=== PATIENT | male | born 1975 | race Caucasian/White ===

== ENCOUNTER 2020-01-21 19:56 | Inpatient (IN) | payer BC, OTHER ==
--- NOTE | 2020-01-21 20:42 | PDOC ---
History of Present Illness - General Chief Complaint: Bite Stated Complaint: DOG BITE Time Seen by Provider: 01/21/20 20:05 - History of Present Illness Initial Comments: 01/21/20 20:41 44-year-old male with dyslipidemia presents for evaluation after dog bite yesterday. Patient seen by his primary care physician placed on Augmentin cellulitis of the left hand is increasing and going past the outline margin outlined by his physician yesterday. He was given a dose of IV antibiotics by his physician today and told to come to the hospital. He is failing outpatient therapy Past History - Medical History Allergies/Adverse Reactions: Allergies Allergy/AdvReac Type Severity Reaction Status Date / Time No Known Allergies Allergy Verified 01/21/20 20:02 COPD: No - Psycho-Social/Smoking History Smoking History: Never smoked - Substance Abuse Hx (Audit-C & DAST Scrn) How often the patient has a drink containing alcohol: Never Score: In Men: 4 or > Positive; In Women: 3 or > Positive: 0 Screen Result (Pos requires Nsg. Audit-10AR): Negative Review of Systems - Review of Systems Constitutional: No: Fever Integumentary: Yes: Erythema *Physical Exam - Vital Signs Last Vital Signs Temp Pulse Resp BP Pulse Ox 98.5 F 77 19 136/89 98 01/21/20 19:58 01/21/20 19:58 01/21/20 19:58 01/21/20 19:58 01/21/20 19:58 - Physical Exam 01/21/20 20:41 Left hand is warm erythemic and sensitive without induration or areas of fluctuance full passive range of motion of the fingers wrist and forearm. Neurovascular intact ED Treatment Course - LABORATORY CBC & Chemistry Diagram: 01/21/20 21:00 01/21/20 20:44 - RADIOLOGY Radiology Studies Ordered: Category Date Time Status CHEST PA & LAT [RAD] Stat Radiology 01/21/20 20:37 Ordered Medical Decision Making - Medical Decision Making 01/21/20 20:42 Failing outpatient therapy patient put in for admission. I have reviewed the pathophysiology with the patient. They are in agreement with the treatment plan all questions were answered to their satisfaction. Understanding for follow-up without fail was also conveyed to the patient. Again they are in agreement. 01/21/20 20:42 Hospitalist called for admission 01/21/20 21:25 Second call placed to hospitalist for admission Discharge - Discharge Information Problems reviewed: Yes Clinical Impression/Diagnosis: Dog bite, Cellulitis of hand Condition: Stable - Admission Yes - Follow up/Referral Referrals: Jose Brown MD [Primary Care Provider] - - Patient Discharge Instructions - Post Discharge Activity
[2020-01-21 21:35] LABS: BASO % 0.6 % (0-2.0); EOS % 1.5 % (0-4.5); HEMATOCRIT 43.9 % (35.4-49); HEMOGLOBIN 14.8 GM/dL (11.7-16.9); LYMPH % 30.7 % (8-40); MCH 29.1 pg (25.7-33.7); MCHC 33.7 g/dl (32.0-35.9); MEAN CELL VOLUME 86.4 fl (80-96); MEAN PLT VOLUME 8.5 fl (7.5-11.1); MONO % 7.6 % (3.8-10.2); NEUT % 59.6 % (42.8-82.8); PLATELET COUNT 304 K/MM3 (134-434); RBC 5.08 M/mm3 (4.00-5.60); RDW 14.3 % (11.9-15.9); WHITE BLOOD COUNT 9.9 K/mm3 (4.0-10.0)
[2020-01-21 21:43] LABS: INR 1.06 (0.83-1.09); PROTHROMBIN TIME (PATIENT) 12.5 SEC (9.7-13.0)
[2020-01-21 22:20] LABS: ALBUMIN 4.2 g/dl (3.4-5.0); BILIRUBIN,TOTAL 0.4 mg/dL (0.2-1); BLOOD UREA NITROGEN 15.4 mg/dL (7-18); CALCIUM 9.4 mg/dL (8.5-10.1); POTASSIUM 4.2 mmol/L (3.5-5.1); TOT PROT 8.1 g/dl (6.4-8.2)
--- NOTE | 2020-01-21 22:57 | HP ---
Admitting History and Physical - Primary Care Physician PCP: Jose Brown - Admission Chief Complaint: s/p Dog Bite, Increased Pain, Swelling, Redness to L- hand History of Present Illness: This is a 44 y/o male with a PMHx of Hyperlipidemia (Diet and Exercise control), HTN, Anxiety. Who presents to the ED with progressive swelling, erythema, pain and numbness to his left hand s/p dog bite. Patient reports being bite by his dog during the dog being euthanized. He reports seeing his PMD and being started on Augmentin. He reports taking 4 doses without improvement, going to the office and being given IV antibiotics and told to come to the ED for admission. Patient reports that the dog was UTD with Rabies vaccination. Patient denies fever, chills, cough, SOB, CP, palpitations, AP,N/V/D, constipation, dysuria. Patient denies sick contacts or recent travel. Per patient Tetanus Booster was given. History Source: Patient Limitations to Obtaining History: No Limitations - Past Medical History Cardiovascular: Yes: HTN, Hyperlipdemia Psych: Yes: Anxiety - Smoking History Smoking history: Current some day smoker (socially) Have you smoked in the past 12 months: Yes - Alcohol/Substance Use Hx Alcohol Use: Yes (Ocassional) History of Substance Use: reports: None - Social History Usual Living Arrangement: Yes: With Spouse Do you think of yourself as: Straight/Heterosexual ADL: Independent Occupation: Warehouse Receiving Supervisor- [employer] History of Recent Travel: No Home Medications - Allergies Allergies/Adverse Reactions: Allergies Allergy/AdvReac Type Severity Reaction Status Date / Time No Known Allergies Allergy Verified 01/21/20 20:02 - Home Medications Home Medications: Ambulatory Orders Hydrochlorothiazide [Hctz -] 12.5 mg PO DAILY 01/21/20 Paroxetine HCl [Paxil] 10 mg PO DAILY 01/21/20 Phentermine HCl 15 mg PO DAILY 01/21/20 Semaglutide [Ozempic] 1 mg SQ WEEKLY 01/21/20 Family Medical History Family History: Unremarkable Review of Systems - Review of Systems Constitutional: reports: No Symptoms Eyes: reports: No Symptoms HENT: reports: No Symptoms Neck: reports: No Symptoms Cardiovascular: reports: No Symptoms Respiratory: reports: No Symptoms Gastrointestinal: reports: No Symptoms Genitourinary: reports: No Symptoms Breasts: reports: No Symptoms Reported Musculoskeletal: reports: Decreased ROM (left hand), Extremity Pain Integumentary: reports: Erythema, Wound Neurological: reports: Numbness Endocrine: reports: No Symptoms Hematology/Lymphatic: reports: No Symptoms Psychiatric: reports: No Symptoms Pain Intensity: 6 Physical Examination Vital Signs: Vital Signs Temperature 98.5 F 01/21/20 19:58 Pulse Rate 77 01/21/20 19:58 Respiratory Rate 19 01/21/20 19:58 Blood Pressure 136/89 01/21/20 19:58 O2 Sat by Pulse Oximetry (%) 98 01/21/20 19:58 Constitutional: Yes: Well Nourished, No Distress, Calm, Obese Eyes: Yes: WNL, Conjunctiva Clear, EOM Intact, PERRL HENT: Yes: WNL, Atraumatic, Normocephalic Neck: Yes: WNL, Supple, Trachea Midline Cardiovascular: Yes: WNL, Regular Rate and Rhythm, S1, S2 Respiratory: Yes: WNL, Regular, CTA Bilaterally Gastrointestinal: Yes: WNL, Normal Bowel Sounds, Soft, Abdomen, Obese ...Rectal Exam: Yes: Deferred Renal/: Yes: WNL Breast(s): Yes: WNL Musculoskeletal: Yes: Other (Left hand swelling (able to make closed fist, move all digits) Extremities: Yes: Erythema. No: Cold, Cool, Cyanosis, Delayed Capillary Refill Edema: No Peripheral Pulses WNL: Yes Integumentary: Yes: Erythema Wound/Incision: Yes: Reddened. No: Draining Neurological: Yes: WNL, Alert, Oriented, Cran Nerves II-XII Intact ...Motor Strength: LUE (4/5), LLE (5/5), RUE (5/5), RLE (5/5) Psychiatric: Yes: WNL, Alert, Oriented Labs: CBC, BMP 01/21/20 21:00 01/21/20 20:44 Imaging - Results Chest X-ray: Image Reviewed X-ray: Image Reviewed Problem List - Problems (1) Cellulitis of hand Assessment/Plan: s/p Dog Bite Likely secondary to Failed Outpatient Therapy Blood Cultures-pending Hand Xray image reviewed Will start on Clindamycin for broad spectrum coverage Appreciate ID consult Elevate extremity Neurovascular checks Tylenol prn Monitor CBC, CMP Monitor vitals Code(s): L03.119 - CELLULITIS OF UNSPECIFIED PART OF LIMB (2) Dog bite Assessment/Plan: Wound care Continue Clindamycin Appreciate ID consult Monitor CBC Monitor Vitals Code(s): W54.0XXA - BITTEN BY DOG, INITIAL ENCOUNTER (3) Anxiety Assessment/Plan: stable Continue Paxil Code(s): F41.9 - ANXIETY DISORDER, UNSPECIFIED (4) HTN (hypertension) Assessment/Plan: stable Monitor BP Continue HCTZ Monitor CMP Code(s): I10 - ESSENTIAL (PRIMARY) HYPERTENSION (5) HLD (hyperlipidemia) Assessment/Plan: Controlled with diet and exercise No current medication Code(s): E78.5 - HYPERLIPIDEMIA, UNSPECIFIED (6) Severe obesity (BMI >= 40) Assessment/Plan: Counseled on weight reduction and healthier lifestyle choices Continue Phentermine Code(s): E66.01 - MORBID (SEVERE) OBESITY DUE TO EXCESS CALORIES (7) Encounter for screening laboratory testing for COVID-19 virus Assessment/Plan: Low Risk Covid PCR-pending Isolation Precautions Code(s): Z11.59 - ENCOUNTER FOR SCREENING FOR OTHER VIRAL DISEASES Assessment/Plan This is a 44 y/o male with a PMHx of Hyperlipidemia (Diet and Exercise control), HTN, Anxiety. admitted to [facility] for Cellulitis of Left Hand secondary to Failed Outpatient Therapy, s/p Dog Bite for further evaluation of their emergent condition. Plan: See Problem List FEN PO fluids as tolerated Replete lytes prn Low Na, Low Cholesterol Diet DVT ppx OOB SCDs Heparin SQ Dispo: Requires Inpatient Care Visit type - Emergency Visit Emergency Visit: Yes ED Registration Date: 01/21/20 Care time: The patient presented to the Emergency Department on the above date and was hospitalized for further evaluation of their emergent condition. - New Patient This patient is new to me today: Yes Date on this admission: 01/21/20 - Critical Care Critical Care patient: No
[2020-01-22] MEDS ORDERED: ACETAMINOPHEN 325 MG TABLET (FP) ONE (00:29)
[2020-01-22] MEDS: ACETAMINOPHEN 325 MG TABLET (FP) PO PRN ×2 (00:31→15:44)
[2020-01-22] MEDS ORDERED: CLINDAMYCIN 600MG PREMIX IVPB 600 MG/50 ML BAG IVPB ONE (02:48)
[2020-01-22] MEDS: CLINDAMYCIN 600MG PREMIX IVPB 600 MG/50 ML BAG IVPB SCH ×2 (03:10→10:01)
[2020-01-22] MEDS ORDERED: MELATONIN 5 MG TABLETS PO PRN (04:03)
[2020-01-22 05:31] VITALS: BMI 44.9
[2020-01-22 07:40] LABS: BASO % 0.7 % (0-2.0); EOS % 2.1 % (0-4.5); HEMATOCRIT 41.6 % (35.4-49); LYMPH % 34.9 % (8-40); MCH 28.8 pg (25.7-33.7); MCHC 33.6 g/dl (32.0-35.9); MEAN CELL VOLUME 85.8 fl (80-96); MEAN PLT VOLUME 8.1 fl (7.5-11.1); MONO % 7.6 % (3.8-10.2); NEUT % 54.7 % (42.8-82.8); PLATELET COUNT 249 K/MM3 (134-434); RBC 4.85 M/mm3 (4.00-5.60); RDW 14.2 % (11.9-15.9); WHITE BLOOD COUNT 8.2 K/mm3 (4.0-10.0)
[2020-01-22 08:01] LABS: BLOOD UREA NITROGEN 15.8 mg/dL (7-18); CALCIUM 8.8 mg/dL (8.5-10.1); CREATININE 0.9 mg/dL (0.55-1.3); POTASSIUM 3.9 mmol/L (3.5-5.1)
--- NOTE | 2020-01-22 09:40 | PN ---
Progress Note, Physician Chief Complaint: Left hand cellulitis s/p dog bite History of Present Illness: NAD Swelling left hand much improved, mild pain if he tries to close his hand - Current Medication List Current Medications: Active Medications Acetaminophen (Tylenol -) 650 mg PO Q6H PRN PRN Reason: PAIN LEVEL 6-10 Last Admin: 01/22/20 00:31 Dose: 650 mg Documented by: Heparin Sodium (Porcine) (Heparin -) 5,000 unit SQ BID [facility] Hydrochlorothiazide (Hctz -) 12.5 mg PO DAILY [facility] Clindamycin Phosphate (Cleocin 600 Mg Premix Ivpb -) 600 mg in 50 mls @ 100 mls/hr IVPB Q6H-IV [facility]; Protocol Last Admin: 01/22/20 03:10 Dose: 100 mls/hr Documented by: Lactobacillus Acidophilus (Bacid -) 1 tab PO DAILY [facility] Melatonin (Melatonin) 5 mg PO HS PRN PRN Reason: INSOMNIA Last Admin: 01/22/20 04:15 Dose: 5 mg Documented by: Non-Formulary Medication (Phentermine Hcl [Phentermine Hcl]) 15 mg PO DAILY [facility] Paroxetine HCl (Paxil -) 10 mg PO DAILY [facility] - Objective Vital Signs: Vital Signs Temperature 97.9 F 01/22/20 05:26 Pulse Rate 60 01/22/20 05:26 Respiratory Rate 18 01/22/20 05:26 Blood Pressure 140/58 L 01/22/20 05:26 O2 Sat by Pulse Oximetry (%) 96 01/22/20 05:26 Constitutional: Yes: Well Nourished, No Distress, Calm Cardiovascular: Yes: Regular Rate and Rhythm Respiratory: Yes: Regular, CTA Bilaterally Gastrointestinal: Yes: Normal Bowel Sounds, Soft Genitourinary: Yes: WNL Musculoskeletal: Yes: WNL Extremities: Yes: Other (Left hand swelling) Edema: No Peripheral Pulses WNL: Yes Integumentary: Yes: Erythema (Left dorsal hand) Neurological: Yes: Alert, Oriented Psychiatric: Yes: Alert, Oriented Labs: CBC, BMP 01/22/20 06:40 01/22/20 06:40 INR, PTT INR 1.06 (0.83-1.09) 01/21/20 21:00 Problem List - Problems (1) Cellulitis of hand Assessment/Plan: -Labs unremarkable -ESR mildly elevated -ID consult -Afebrile -IV abx as per ID, may change to oral in am and d/c home Problems reviewed: Yes Code(s): L03.119 - CELLULITIS OF UNSPECIFIED PART OF LIMB (2) Dog bite Problems reviewed: Yes Code(s): W54.0XXA - BITTEN BY DOG, INITIAL ENCOUNTER (3) Severe obesity (BMI >= 40) Problems reviewed: Yes Code(s): E66.01 - MORBID (SEVERE) OBESITY DUE TO EXCESS CALORIES Assessment/Plan See problem list
[2020-01-22] MEDS ORDERED: PHENTERMINE HCL 15 MG PO SCH (10:00)
[2020-01-22] MEDS: LACTOBACILLUS ACIDOPHILUS 1 TABLET PO SCH (10:01)
[2020-01-22] MEDS: HEPARIN NA (PORCINE) 5,000 UNITS/ML 1ML VIAL SQ SCH ×2 (10:01→21:33)
[2020-01-22] MEDS: HYDROCHLOROTHIAZIDE 12.5 MG CAPSULE (FP) PO SCH (10:01)
[2020-01-22] MEDS: PARoxetine HCL 10 MG TABLET PO SCH (10:01)
--- NOTE | 2020-01-22 11:48 | PN ---
Progress Note (short form) - Note Progress Note: ID CONSULT DICTATED CELLULITIS L HAND S/P DOG BITE L HAND AWAIT C/S EMPPIRIC UNASYN/ VANCOMYCIN ELEVATION
--- NOTE | 2020-01-22 12:30 | CONS ---
INFECTIOUS DISEASE CONSULTATION DATE OF CONSULTATION: DATE OF DICTATION: 01/22/2020 HISTORY: The patient is a 44-year-old male who is evaluated for cellulitis of the left hand. He reports that on Monday, January 20, 2020, he was at the billing typist for his dog's euthanasia. He was bitten by the dog on his left hand. He sustained a bite wound to the webspace of the thumb and the 1st finger as well as the distal aspect of the thumb and the radial aspect of the thumb. The patient promptly washed the wound and used iodine. He presented to his primary care physician where he was prescribed Augmentin. The area of erythema was traced out. He reports that despite the Augmentin he developed worsening, swelling of the hand as well as extension of erythema from the dorsum of the hand to the wrist area. Patient complains of pain in the left hand. He denies any purulent wound drainage. No fever or chills. He is nondiabetic. PAST MEDICAL HISTORY: Positive for obesity, hypertension, hyperlipidemia, anxiety. ALLERGIES: No known allergies. MEDICATIONS: Include clindamycin, Paxil, Tylenol, hydrochlorothiazide. SOCIAL HISTORY: He lives in the community. 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 He is a smoker, occasional EtOH. SYSTEMS REVIEW: Neurologic: No loss of consciousness, seizure activity, focal weakness. Cardiac: Negative chest pain or palpitations. Respiratory: Negative cough or sputum production. Gastrointestinal: Negative vomiting or diarrhea. Genitourinary: Negative for urinary tract infection. LABORATORY DATA: White count 8.2, hematocrit 41.6, platelet count 249. BUN 15, creatinine 0.9, ESR 18, C-reactive protein 1.9. Blood cultures pending. PHYSICAL EXAMINATION: General: He is awake and alert. He is not acutely toxic appearing. Vital Signs: Temperature 97.9, blood pressure 140/58, pulse 60 regular, respirations 18 per minute. HEENT: Sclerae are anicteric. Heart: Sounds S1, S2. Lungs: Clear. Abdomen: Soft, nontender. Extremities: Negative for edema. Examination of the left hand there are bite wounds present on the dorsal aspect of the webspace between the left thumb and the left index finger. There are also bite wounds present distal tip of the thumb as well as the radial aspect of the mid thumb. No purulent drainage. There is swelling and erythema of the left thumb extending to the dorsum of the hand and to the proximal wrist. It is tender to touch. There is no crepitus or fluctuance, no lymphangitic streaking. IMPRESSION: 1. Cellulitis, left hand. 2. Status post dog bite, left hand. Await cultures. Empiric antibiotic coverage with Unasyn and vancomycin. Elevation, local wound care. Thank you for the kind referral. ARACELI BEAR M.D. MARLYN/[id number]
[2020-01-22] MEDS ORDERED: PT OWN MED DRAWER 7, Y5N ONE ×2 (14:41→20:38)
[2020-01-22] MEDS: AMPICILLIN NA/SULBACTAM NA 3 GM in SODIUM CHLORIDE 100 ML IVPB SCH ×3 (14:44→20:45)
--- NOTE | 2020-01-22 14:55 | EKG ---
Test Reason : Blood Pressure : / mmHG Vent. Rate : 063 BPM Atrial Rate : 063 BPM P-R Int : 116 ms QRS Dur : 094 ms QT Int : 420 ms P-R-T Axes : 017 -11 007 degrees QTc Int : 429 ms NORMAL SINUS RHYTHM VOLTAGE CRITERIA FOR LEFT VENTRICULAR HYPERTROPHY ABNORMAL ECG NO PREVIOUS ECGS AVAILABLE Confirmed by TERENCE DE MD ([id number]) on 01/22/2020 2:55:06 PM Referred By: Confirmed By:TERENCE DE MD
[2020-01-22] MEDS: VANCOMYCIN 1 GRAM (PRE-DOCKED) 1,000 MG/250 ML BAG IVPB SCH (17:10)
[2020-01-23] MEDS: VANCOMYCIN 1 GRAM (PRE-DOCKED) 1,000 MG/250 ML BAG IVPB SCH ×2 (00:12→11:36)
[2020-01-23] MEDS ORDERED: PT OWN MED DRAWER 7, Y5N ONE (02:11)
[2020-01-23] MEDS: AMPICILLIN NA/SULBACTAM NA 3 GM in SODIUM CHLORIDE 100 ML IVPB SCH ×3 (02:15→14:00)
[2020-01-23] MEDS: HYDROCHLOROTHIAZIDE 12.5 MG CAPSULE (FP) PO SCH (09:57)
[2020-01-23] MEDS: HEPARIN NA (PORCINE) 5,000 UNITS/ML 1ML VIAL SQ SCH (09:57)
[2020-01-23] MEDS: LACTOBACILLUS ACIDOPHILUS 1 TABLET PO SCH (09:57)
[2020-01-23] MEDS: PARoxetine HCL 10 MG TABLET PO SCH (09:58)
[2020-01-23 10:06] VITALS: BP 111/58; PULSE 61; TEMP 98.1
--- NOTE | 2020-01-23 13:12 | DS ---
Physical Examination Vital Signs: Vital Signs Temperature 98.1 F 01/23/20 10:00 Pulse Rate 61 01/23/20 10:00 Respiratory Rate 189 H 01/23/20 10:00 Blood Pressure 111/58 L 01/23/20 10:00 O2 Sat by Pulse Oximetry (%) 100 01/23/20 10:00 Cardiovascular: Yes: Regular Rate and Rhythm Respiratory: Yes: Regular, CTA Bilaterally Gastrointestinal: Yes: Normal Bowel Sounds, Soft Wound/Incision: No: Draining, Reddened, Bleeding Labs: CBC, BMP 01/22/20 06:40 01/22/20 06:40 Discharge Summary Problems reviewed: Yes Reason For Visit: DOG BITE Current Active Problems Anxiety (Acute) Cellulitis of hand (Acute) Dog bite (Acute) Encounter for screening laboratory testing for COVID-19 virus (Acute) HLD (hyperlipidemia) (Acute) HTN (hypertension) (Acute) Severe obesity (BMI >= 40) (Acute) Hospital Course: Problems (1) Cellulitis of hand Assessment/Plan: -Labs unremarkable -ESR mildly elevated -ID consult -Afebrile -IV abx as per ID, may change to oral in am and d/c home Problems reviewed: Yes Code(s): L03.119 - CELLULITIS OF UNSPECIFIED PART OF LIMB (2) Dog bite Problems reviewed: Yes Code(s): W54.0XXA - BITTEN BY DOG, INITIAL ENCOUNTER (3) Severe obesity (BMI >= 40) Problems reviewed: Yes Code(s): E66.01 - MORBID (SEVERE) OBESITY DUE TO EXCESS CALORIES Condition: Stable - Instructions Referrals: Jose Brown MD [Primary Care Provider] - - Home Medications Comprehensive Discharge Medication List: Ambulatory Orders Hydrochlorothiazide [Hctz -] 12.5 mg PO DAILY 01/21/20 Paroxetine HCl [Paxil] 10 mg PO DAILY 01/21/20 Phentermine HCl 15 mg PO DAILY 01/21/20 Semaglutide [Ozempic] 1 mg SQ WEEKLY 01/21/20 Acetaminophen [Tylenol .Regular Strength -] 650 mg PO Q6H PRN tablet 01/23/20 Amox-Tr/K Cl [Augmentin - 875Mg Tablet] 1 tab PO BID #14 tablet 01/23/20
--- NOTE | 2020-01-23 13:29 | PN ---
Progress Note, Physician History of Present Illness: AWAKE, ALERT SEATED IN BED AFEBRILE REPORTS LESS L HAND PAIN NO C/O F/C BC (-) COVID (-) - Current Medication List Current Medications: Active Medications Acetaminophen (Tylenol -) 650 mg PO Q6H PRN PRN Reason: PAIN LEVEL 6-10 Last Admin: 01/22/20 15:44 Dose: 650 mg Documented by: Heparin Sodium (Porcine) (Heparin -) 5,000 unit SQ BID [facility] Last Admin: 01/23/20 09:57 Dose: 5,000 unit Documented by: Hydrochlorothiazide (Hctz -) 12.5 mg PO DAILY [facility] Last Admin: 01/23/20 09:57 Dose: 12.5 mg Documented by: Ampicillin Sodium/Sulbactam (Sodium 3 gm/ Sodium Chloride) 100 mls @ 200 mls/hr IVPB Q6H-IV [facility] Last Admin: 01/23/20 09:57 Dose: 200 mls/hr Documented by: Vancomycin HCl (Vancomycin (Pre-Docked)) 1,000 mg in 250 mls @ 166.667 mls/hr IVPB Q12H [facility]; Protocol Last Admin: 01/23/20 11:36 Dose: 166.667 mls/hr Documented by: Lactobacillus Acidophilus (Bacid -) 1 tab PO DAILY [facility] Last Admin: 01/23/20 09:57 Dose: 1 tab Documented by: Melatonin (Melatonin) 5 mg PO HS PRN PRN Reason: INSOMNIA Last Admin: 01/22/20 04:15 Dose: 5 mg Documented by: Paroxetine HCl (Paxil -) 10 mg PO DAILY [facility] Last Admin: 01/23/20 09:58 Dose: 10 mg Documented by: - Objective Vital Signs: Vital Signs Temperature 98.1 F 01/23/20 10:00 Pulse Rate 61 01/23/20 10:00 Respiratory Rate 189 H 01/23/20 10:00 Blood Pressure 111/58 L 01/23/20 10:00 O2 Sat by Pulse Oximetry (%) 100 01/23/20 10:00 Cardiovascular: Yes: Regular Rate and Rhythm, S1, S2 Respiratory: Yes: CTA Bilaterally Gastrointestinal: Yes: Normal Bowel Sounds, Soft. No: Tenderness Extremities: Yes: Other (DECREASED L HAND SWELLING; ERYTHEMA RESOLVED; NO WOUND DRAINAGE) Labs: CBC, BMP 01/22/20 06:40 01/22/20 06:40 INR, PTT INR 1.06 (0.83-1.09) 01/21/20 21:00 Assessment/Plan CELLULITIS L HAND - IMPROVED S/P DOG BITE L HAND SUBSTITUTE AUGMENTIN 875MG PO BID X 7-10D OUTPATIENT FOLLOW UP
== END 2020-01-23 16:34 | disposition home or self-care (01) | DRG 603 ==
LOC: JER 19:56 → JERFT 19:56 → JERBED 23:08 → J7W 01-22 04:04
PROVIDERS: ADMIT Internal Medicine; ATTEND Family Medicine
DX: L03.114 Cellulitis of left upper limb (principal); Z68.42 Body mass index [BMI] 45.0-49.9, adult; F41.9 Anxiety disorder, unspecified; I10 Essential (primary) hypertension; E78.5 Hyperlipidemia, unspecified; E66.01 Morbid (severe) obesity due to excess calories; S61.452A Open bite of left hand, initial encounter; W54.0XXA Bitten by dog, initial encounter; Y92.89 Other specified places as the place of occurrence of the external cause; Y93.9 Activity, unspecified; Y99.9 Unspecified external cause status
CPT/HCPCS: 36415; 71046-TC-FY; 73130-TC-LT-FY; 80048; 80053; 83036; 85025; 85610; 85651; 86140; 87040; 93005; 93010; 99285-25; J1644; U0003